=== PATIENT | female | born 1950 | race Caucasian/White ===

== ENCOUNTER 2016-08-27 10:51 | Emergency (ER) | payer OTHER ==
[2016-08-27 12:05] LABS: ALBUMIN 4.6 g/dL (3.5-5.0); CALCIUM 9.9 mg/dL (8.8-10.2); POTASSIUM 5.6 mmol/L (3.5-5.1); TOTAL BILIRUBIN 0.3 mg/dL (0.20-1.00)
--- NOTE | 2016-08-27 12:23 | EKG Report ---
Test Performed on : 08/27/2016 12:13:33 PM Test Reason : hyperkalemia Blood Pressure : / mmHG Vent. Rate : 069 BPM Atrial Rate : 069 BPM P-R Int : 156 ms QRS Dur : 088 ms QT Int : 386 ms P-R-T Axes : 073 043 061 degrees QTc Int : 413 ms Normal sinus rhythm. Normal ECG No previous ECGs available Unconfirmed Result
--- NOTE | 2016-08-27 12:23 | ED EKG INTERP ---
EKG Interpretation - EKG Time of EKG reading by physician:: 12:13 EKG Read and Signed by:: Jules Gomez EKG Interpretation (*Must complete 3 of following elements*): Normal Rate: 69 Rhythm: normal sinus rhythm Comments: normal ECG Attestation - Scribe Verification/Attestation Scribe:: Lynnette Hernandez Acting as Scribe for:: Jules Gomez Scribe documention review:: This chart was documented by a scribe and accurately reflects the service the provider performed and the decisions made by the provider.
[2016-08-27] MEDS ORDERED: CALCIUM GLUCONATE 1 GM in NS 50 ML IV ONE (12:38)
[2016-08-27] MEDS ORDERED: ALBUTEROL NEB INH ONE (12:39)
--- NOTE | 2016-08-27 12:43 | PROVIDER DOCUMENTATION ---
HPI-General Adult - General Source: patient - History of Present Illness -Gen Adult Nature of Presenting Problems: Pt is 65 y/o F presents to the ED with abnormal labs. Pt states she was sent her by Dr. Philip. Pt states having an abnormal potassium level. Pt denies pain or anything other symptoms. Location of Pain/Injury: reports: none Pain Radiation: reports: no radiation Quality of Pain: reports: none Onset/Duration: reports: just prior to arrival Timing: reports: still present Context/Activities at Onset: reports: light activity Modifying Factors: improves with: nothing Associated Symptoms: reports: denies symptoms Similar Symptoms Previously?: Yes Recently seen or treated by another doctor?: Yes <Lynnette Hernandez - Last Filed: 08/27/16 13:03> <Christopher Baptiste - Last Filed: 08/27/16 14:21> - General Chief Complaint: Abnormal Lab[s] Stated Complaint: ABNORMAL LABS Time Seen by Provider: 08/27/16 11:48 Allergies/Adverse Reactions: Patient Allergies Allergy/AdvReac Type Severity Reaction Status Date / Time No Known Allergies Allergy Verified 08/27/16 11:06 Review of Systems - Adult - REVIEW OF SYSTEMS - ADULT Constitutional: reports: no symptoms reported Eyes: reports: no symptoms reported Ears, Nose, Mouth & Throat: reports: no symptoms reported Cardiovascular: reports: no symptoms reported Respiratory: reports: no symptoms reported Gastrointestinal: reports: no symptoms reported Genitourinary: reports: no symptoms reported Musculoskeletal: reports: no symptoms reported Integumentary: reports: no symptoms reported Neurological: reports: no symptoms reported Psychiatric: reports: no symptoms reported Endocrine: reports: no symptoms reported Hematologic/Lymphatic: reports: no symptoms reported Allergic/Immunologic: reports: no symptoms reported All Other Systems: Reviewed and Negative <Lynnette Hernandez - Last Filed: 08/27/16 13:03> Past History - Adult - PAST MEDICAL HISTORY-ADULT Review of Records: reports: Nursing Assessment Review, Medications Reviewed, Social history reviewed & non-contributory. Major Childhood Illnesses: reports: denies history Cardiovascular: reports: HTN Respiratory: reports: denies history Gastrointestinal: reports: denies history Obstetrical/Gynecological: reports: denies history Genitourinary: reports: denies history Musculoskeletal: reports: denies history Neurological: reports: denies history Endocrine/Immune: reports: denies history Other Conditions: reports: denies history - PRIOR SURGERIES/PROCEDURES Surgical/Procedure History: reports: reviewed, not pertinent - IMMUNIZATION STATUS Childhood Immunizations: See Nurse Assessment Flu Vaccine: See Nurse Assessment - FAMILY HISTORY Family History: reviewed, not pertinent - SOCIAL HISTORY Smoking: quit less than 1 year, cigarettes Substance Use: denies Living Situation: family <Lynnette Hernandez - Last Filed: 08/27/16 13:03> Physical Exam-General - PHYSICAL EXAM-ADULT Initial Vital Signs Reviewed: Yes - CONSTITUTIONAL General Appearance: appears well, alert, no apparent distress - EYES Eyes: PERRL/EOMI, pink conjunctivae, fundi clear, no AV nicking - HEAD, EARS, NOSE, MOUTH & THROAT HENMT: normocephalic/atraumatic, moist mucous membranes, normal ENT inspection, TMs normal, pharynx normal - NECK Neck: non-tender, full range of motion, supple, normal inspection - RESPIRATORY Respiratory: chest non-tender, lungs clear, normal breath sounds, no pleuratic chest pain, no respiratory distress, no accessory muscle use - CARDIOVASCULAR Cardiovascular: normal peripheral pulses, regular rate, rhythm, no edema, no gallop, no JVD, no murmur - GASTROINTESTINAL (ABDOMEN) Abdominal Exam: normal bowel sounds, non tender, soft, no organomegaly, no pulsatile mass - LYMPHATIC Lymphatic: no adenopathy - MUSCULOSKELETAL Back Exam: normal inspection, no CVA tenderness, no vertebral tenderness Extremity: normal range of motion, non-tender, normal gait, normal inspection, no pedal edema, no calf tenderness, normal capillary refill - SKIN Integumentary: normal color, normal turgor, warm/dry - NEUROLOGIC Neurologic: grossly normal - PSYCHIATRIC Psych/Mental Status: normal mood/affect, oriented x 3 <Lynnette Hernandez - Last Filed: 08/27/16 13:03> Progress - PLAN OF CARE/RESULTS Progress/Plan/Lab Results: Laboratory Tests 08/27/16 08/27/16 11:25 11:25 Sodium 135 L Potassium 5.6 H Chloride 99 Carbon Dioxide 29 Anion Gap 8 BUN 20 Creatinine 1.0 H Estimated GFR/1.73 m2 56 BUN/Creatinine Ratio 20 Glucose 79 Calculated Osmolality 272 Calcium 9.9 Magnesium 2.2 Total Bilirubin 0.30 AST 22 ALT 13 Alkaline Phosphatase 49 Total Protein 7.0 Albumin 4.6 Globulin 2.0 Albumin/Globulin Ratio 2.0 Orders Category Date Time Status COMPREHENSIVE METABOLIC PANEL [CHEM] Stat Lab 08/27/16 11:25 Completed MAGNESIUM [CHEM] Stat Lab 08/27/16 11:25 Completed Albuterol [Albuterol Neb] Med 08/27/16 12:39 Discontinued 5 mg INH NOW ONE Calcium Gluconate 1 gm Med 08/27/16 12:38 Active 0.9% Sodium Chloride Inj [Ns] 50 ml IV NOW Aerosol Treatments Routine Oth 08/27/16 12:40 Active Aerosol Treatments Stat Oth 08/27/16 12:40 Active EKG [EKG] Stat Ther 08/27/16 12:09 Draft Vital Signs - 24 hr 08/27/16 11:04 Temperature 97.9 F Pulse Rate 78 Respiratory 18 Rate Blood Pressure 122/58 O2 Sat by Pulse 99 Oximetry - CONSULTS/PCP/HOSPITALIST Notification #1 *Consult/PCP/Hospitalist*: Dr. Philip Time Discussed: 12:25 (Dr. Philip states give Pt meds for potassium and send Pt home after treatment.) Reason/Comments: YESSICA Jaimes, consults with Dr. Philip about Pt's potassium of 5.6 Consult Disposition: other <Lynnette Hernandez - Last Filed: 08/27/16 13:03> - PLAN OF CARE/RESULTS Progress/Plan/Lab Results: Laboratory Tests 08/27/16 08/27/16 08/27/16 11:25 11:25 13:45 Sodium 135 L Potassium 5.6 H 4.3 D Chloride 99 Carbon Dioxide 29 Anion Gap 8 BUN 20 Creatinine 1.0 H Estimated GFR/1.73 m2 56 BUN/Creatinine Ratio 20 Glucose 79 Calculated Osmolality 272 Calcium 9.9 Magnesium 2.2 Total Bilirubin 0.30 AST 22 ALT 13 Alkaline Phosphatase 49 Total Protein 7.0 Albumin 4.6 Globulin 2.0 Albumin/Globulin Ratio 2.0 Orders Category Date Time Status COMPREHENSIVE METABOLIC PANEL [CHEM] Stat Lab 08/27/16 11:25 Completed MAGNESIUM [CHEM] Stat Lab 08/27/16 11:25 Completed POTASSIUM [CHEM] Stat Lab 08/27/16 13:45 Completed Albuterol [Albuterol Neb] Med 08/27/16 12:39 Discontinued 5 mg INH NOW ONE Calcium Gluconate 1 gm Med 08/27/16 12:38 Discontinued 0.9% Sodium Chloride Inj [Ns] 50 ml IV NOW Aerosol Treatments Routine Oth 08/27/16 12:40 Active Aerosol Treatments Stat Oth 08/27/16 12:40 Active EKG [EKG] Stat Ther 08/27/16 12:09 Draft Vital Signs Temp Pulse Resp BP Pulse Ox 08/27/16 14:05 97.1 F L 73 18 140/77 99 08/27/16 12:54 67 18 94 L 08/27/16 11:04 97.9 F 78 18 122/58 99 No Known Allergies Allergy (Verified 08/27/16 11:06) Laboratory 08/27/16 08/27/16 08/27/16 13:45 11:25 11:25 Sodium 135 L Potassium 4.3 D 5.6 H Chloride 99 Carbon Dioxide 29 Anion Gap 8 BUN 20 Creatinine 1.0 H Estimated GFR/1.73 m2 56 BUN/Creatinine Ratio 20 Glucose 79 Calculated Osmolality 272 Calcium 9.9 Magnesium 2.2 Total Bilirubin 0.30 AST 22 ALT 13 Alkaline Phosphatase 49 Total Protein 7.0 Albumin 4.6 Globulin 2.0 Albumin/Globulin Ratio 2.0 Pt feels very well. Will d/c home. <Christopher Baptiste - Last Filed: 08/27/16 14:21> Departure <Lynnette Hernandez - Last Filed: 08/27/16 13:03> - Departure Time of Disposition Order: 14:21 Certified Medical Emergency: Emergent <Christopher Baptiste - Last Filed: 08/27/16 14:21> - Departure DIAGNOSIS: Hyperkalemia Disposition: HOME 01 Condition: Good Additional Instructions: Follow up with your primary care provider. ED Follow Up Instructions: You have been treated by a care provider in the Emergency Department. These instructions are being provided to you so you can have an understanding of how to care for yourself upon discharge. Upon discharge from the Emergency Department, you are responsible for making arrangements for follow-up care by a physician of your choice. Take all prescribed medications as directed. Return to the Emergency Department immediately for any new or worsening symptoms. You may call the Physician Referral phone number at [phone] to obtain a list of Physicians who are taking new patients. Referrals: David Philip MD [Primary Care Provider] - Attestation - Scribe Verification/Attestation Scribe:: Lynnette Hernandez Acting as Scribe for:: Jules Gomez Scribe documention review:: This chart was documented by a scribe and accurately reflects the service the provider performed and the decisions made by the provider. <Lynnette Hernandez - Last Filed: 08/27/16 13:03> - Physician/ MYNOR Attestation Patient care was provided by Advanced Practice Provider:: Yes Advanced Practice Provider:: Christopher Baptiste Advanced Practice Provider documentation review:: The Mid-level provider documentation, treatment plan and medical decision making was reviewed by the physician who agrees with all treatment and medical decision making by the MLP. <Christopher Baptiste - Last Filed: 08/27/16 14:21> Physician Attestation
[2016-08-27 14:06] VITALS: BP 140/77
== END 2016-08-27 14:56 | disposition home or self-care (01) ==
LOC: P.ED 10:51
DX: E87.5 Hyperkalemia (principal); I10 Essential (primary) hypertension; Z87.891 Personal history of nicotine dependence
CPT/HCPCS: 36415; 80053; 83735; 84132; 93005; 94640; 96365; J0610